=== PATIENT | female | born 1970 | race Caucasian/White ===

== ENCOUNTER 2024-03-30 19:41 | Emergency (ER) | payer BC, SELFPAY ==
[2024-03-30 19:49] VITALS: BP 118/79; BMI 25.4
--- NOTE | 2024-03-30 20:31 | ED.GENMED ---
History of Present Illness
General
Chief Complaint: Rabies
Source: patient
Exam Limitations: none
Time Seen by Provider: 03/30/24 20:18
History of Present Illness
History of Present Illness:
54-year-old female presents for rabies vaccination. She was exposed to a sick horse. Several people were exposed and there was potential the horse had rabies. She was advised by the animal physician as well as her physician to come here for
rabies prophylaxis. She has never been immunized in the past. She is not on any medications daily.
Past History
Past History
ED Past Medical History: None
Social History
Tobacco: Non-smoker
Living: with family
Employment: Employed
Phy Exam
Physical Exam
Physical Exam:
General: Well-appearing female no acute respiratory distress
Neurologic: Alert normal gait conversing appropriately
Extremities: No cyanosis
Course
Orders/Labs/Results
Orders:
Orders
03/30/24 20:18
Rabies Vaccine (Pcec)/Pf [Rabavert Rabies Vacc W-Diluent] 2.5 unit IM .ONCE ONE
03/30/24 20:30
Rabies Immune Globulin/Pf [HyperRAB] 1,515 unit IM NOW STA
Vital Signs
Initial and Last Documented VS:
Initial Vital Signs
Temp Pulse Resp BP Pulse Ox
98.2 F 83 16 118/79 98
03/30/24 19:49 03/30/24 19:49 03/30/24 19:49 03/30/24 19:49 03/30/24 19:49
Last Documented Vital Signs
Temp Pulse Resp BP Pulse Ox
98.2 F 83 16 118/79 98
03/30/24 19:49 03/30/24 19:49 03/30/24 19:49 03/30/24 19:49 03/30/24 19:49
MDM/Problems Addressed
Differential Diagnosis Includes:
Patient is here for a rabies immunization for exposure to potentially rabid horse. Immunoglobulin vaccine ordered. Will refer to the outpatient infusion center for the remaining vaccine
*Critical Care Note
Total Time (30-74mins, 75-104mins- exclusive of procedures): Not Applicable
ED Attending Note
-
Portions of this chart may have been created with voice recognition software.� Occasional wrong word or��sound alike� substitutions may have occurred due to the inherent limitations of voice recognition software.
Discharge Plan
Departure
Patient Disposition: Home (Routine Discharge)
Date of Disposition: 03/30/24
Time of Disposition: 20:33
Patient with high blood pressure during this ER visit?: No
Discharge Problem:
Rabies, need for prophylactic vaccination against
Prescriptions:
New
RabAvert (PF) 2.5 unit Suspension For Reconstitution
1 ml IM . DIRECTED Qty: 3 0RF
Rx Instructions:
See Rabies Vaccine Post Exposure Prophylaxis Instruction Sheet for Dosing Instructions
No Action
Immune Therapy
WEEKLY
hydrocodone-acetaminophen 1 TABLET tablet
1 tab PO Q4HPRN PRN (Reason: pain) Qty: 15 0RF
Stand Alone Forms: Rabies Vaccine Post Exp Dosing
Interventions
Interventions:
*Risk Screen - Suicide Last Done: 03/30/24 19:49
*Neglect/Abuse Screening Last Done: 03/30/24 19:49
ED- Fall Risk Assessment Last Done: 03/30/24 19:49
Discharge Date and Time
Print Language: TAJIK
[2024-03-30] MEDS: HyperRAB 1515 UNIT IM (21:15)
[2024-03-30] MEDS: RABAVERT RABIES VACC W-DILUENT 2.5 UNIT IM (21:19)
== END 2024-03-30 21:38 | disposition home or self-care (01) ==
LOC: EMR 19:41
PROVIDERS: EMERGENCY PHYSICIAN Emergency Medicine; FAMILY PHYSICIAN Internal Medicine
DX: Z20.3 Contact with and (suspected) exposure to rabies (principal); Z23 Encounter for immunization
CPT/HCPCS: 99281; 90471; 96372; 90375; 90675

== ENCOUNTER 2024-04-02 15:14 | Outpatient (RCR) | payer BC, SELFPAY ==
[2024-04-02 15:37] VITALS: BP 112/60
[2024-04-02] MEDS: RABAVERT RABIES VACC W-DILUENT 2.5 UNIT IM (15:37)
== END 2024-04-03 08:36 | disposition home or self-care (01) ==
LOC: OID 15:14
PROVIDERS: ATTENDING PHYSICIAN Emergency Medicine; FAMILY PHYSICIAN Internal Medicine
DX: Z20.3 Contact with and (suspected) exposure to rabies (principal); Z23 Encounter for immunization
CPT/HCPCS: 90471; 90675

== ENCOUNTER 2024-04-13 15:05 | Outpatient (RCR) | payer BC, SELFPAY ==
[2024-04-06 15:29] VITALS: BP 97/52
[2024-04-06] MEDS: RABAVERT RABIES VACC W-DILUENT 2.5 UNIT IM (15:40)
[2024-04-13 15:10] VITALS: BP 109/63
[2024-04-13] MEDS: RABAVERT RABIES VACC W-DILUENT 2.5 UNIT IM (15:15)
== END 2024-04-16 08:59 | disposition home or self-care (01) ==
LOC: OID 15:05
PROVIDERS: ATTENDING PHYSICIAN Emergency Medicine; FAMILY PHYSICIAN Internal Medicine
DX: Z20.3 Contact with and (suspected) exposure to rabies (principal); Z23 Encounter for immunization
CPT/HCPCS: 90471; 90675